=== PATIENT | male | born 1990 | race Caucasian/White ===

== ENCOUNTER 2016-09-29 22:21 | Emergency (ER) | payer OTHER ==
[~2016-09-29] VITALS: Ht 165.1 cm; Wt 81.0 kg
[2016-09-29] MEDS ORDERED: MORPHINE SULFATE 4 MG/ML, 1ML ONE (22:42)
[2016-09-29] MEDS ORDERED: KETOROLAC 30 MG/1 ML ONE (22:42)
[2016-09-29] MEDS ORDERED: ONDANSETRON 2MG/ML, 2ML ONE (22:42)
[2016-09-29] MEDS ORDERED: SODIUM CHLORIDE FLUSH 10ML SYR IVF ONE (23:00)
[2016-09-29] MEDS ORDERED: KETOROLAC 30 MG/1 ML IVPush ONE (23:00)
[2016-09-29] MEDS ORDERED: SODIUM CHLORIDE 0.9% 1,000ML IVBOLUS ONE (23:00)
[2016-09-29] MEDS ORDERED: MORPHINE SULFATE 4 MG/ML, 1ML IVPush PRN (23:00)
[2016-09-29] MEDS ORDERED: ONDANSETRON 2MG/ML, 2ML IVPush ONE (23:00)
[2016-09-29 23:05] LABS: ASPARTATE AMINO TRANSFERASE 21 U/L (15-37); BLOOD UREA NITROGEN 11 mg/dL (7-18)
[2016-09-29 23:18] VITALS: BP 157/90
== END 2016-09-29 23:49 | disposition home or self-care (01) ==
LOC: ED 23:41
DX: N23 Unspecified renal colic (principal)
CPT/HCPCS: 36415; 76770; 80053; 81001; 83690; 85025; 96361; 96374; 96375; 99285; J1885; J2405; J7030